=== PATIENT | male | born 1980 | race Caucasian/White ===

== ENCOUNTER 2023-11-17 13:10 | Outpatient (OUT) | payer OTHER, SELFPAY ==
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
== END 2023-11-17 13:11 | disposition home or self-care (01) ==
LOC: PM 13:11
PROVIDERS: Visit Provider Anesthesiology
DX: M47.812 Spondylosis without myelopathy or radiculopathy, cervical region (principal)
CPT/HCPCS: G0463

== ENCOUNTER 2024-01-20 10:34 | Outpatient (OUT) | payer OTHER, SELFPAY ==
--- NOTE | 2024-01-20 10:37 | MR_ITS ---
[place] [id number] Patient Name: SINDY JAVIER MRN: [id number] date: 1980 Sex: M Assigned Patient Location: MRI Current Patient Location: MRI Accession/Order Number: [id number] Exam Date: 01/20/2024 10:47 Report Date: 01/20/2024 14:16 At the request of: SANDRA ROSA Procedure: MR cervical spine wo con EXAMINATION: MR cervical spine wo con HISTORY: Cervical Spondylosis COMPARISON: No relevant comparison available. TECHNIQUE: A variety of imaging planes and parameters were utilized for visualization of suspected pathology. FINDINGS: CRANIOCERVICAL AREA: Normal foramen magnum with no Chiari malformation. PARASPINAL AREA: Normal with no visible mass. BONES: Normal alignment with no acute fracture or spondylolisthesis.. No bone edema CORD: Normal caliber, contour, and signal intensity. CERVICAL DISC LEVELS: C2-C3: No significant disc/facet abnormality, spinal stenosis, or foraminal stenosis. C3-C4: Mild disc space narrowing and disc desiccation. Mild posterior disc/osteophyte complex. No central or foraminal stenosis C4-C5: Mild disc space narrowing and disc desiccation. Mild posterior disc/osteophyte complex. No central or foraminal stenosis C5-C6: Mild disc space narrowing and disc desiccation. Mild posterior disc/osteophyte complex. No central or foraminal stenosis C6-C7: Mild disc space narrowing and disc desiccation. Mild posterior disc/osteophyte complex. No central or foraminal stenosis C7-T1:. No significant disc/facet abnormality, spinal stenosis, or foraminal stenosis. MR/MR cervical spine wo con IMPRESSION: Mild degenerative discogenic changes and spondylosis with no central or foraminal stenosis Electronically authenticated by: BETTY ODONNELL Date: 01/20/2024 14:16
== END 2024-01-20 10:35 | disposition home or self-care (01) ==
LOC: MRI 10:34
PROVIDERS: Visit Provider Anesthesiology
DX: M47.812 Spondylosis without myelopathy or radiculopathy, cervical region (principal)
CPT/HCPCS: 72141

== ENCOUNTER 2024-01-28 08:13 | Outpatient (OUT) | payer OTHER, SELFPAY ==
--- OUTSIDE RECORDS SUMMARY | 2024-01-28 08:22 | XMS_ITS | CCD ---
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 7600, 6399 #### [facility] [place] [address] Furniture Removalist: Mahesh Collado MD Globulin (S) [Mass/Vol] 2.5 g/dL Normal 1.9-3.7 [facility] Comment on above: Performed By: #### 1 0231, 622, 7600, 6399 #### [facility] [address], [address] [place] [address] Furniture Removalist: Mahesh Collado MD Glucose [Mass/Vol] 93 mg/dL Normal 65-139 [facility] Comment on above: Result Comment: Non-fasting reference interval Performed By: #### 1 0231, 622, 7600, 6399 #### [facility] [address], [address] [place] [address] Furniture Removalist: Mahesh Collado MD Potassium [Moles/Vol] 4.2 mmol/L Normal 3.5-5.3 [facility] Comment on above: Performed By: #### 1 0231, 62, 7600, 6399 #### [facility] [place] [address] Furniture Removalist: Mahesh Collado MD Protein [Mass/Vol] 6.5 g/dL Normal 6.1-8.1 [facility] Comment on above: Performed By: #### 1 0231, 622, 7600, 6399 #### [facility] [place] [address] Furniture Removalist: Mahesh Collado MD Sodium [Moles/Vol] 138 mmol/L Normal 135-146 [facility] Comment on above: Performed By: #### 1 0231, 622, 7600, 6399 #### [facility] [place] [address] Furniture Removalist: Mahesh Collado MD Urea nitrogen [Mass/Vol] 13 mg/dL Normal 7-25 [facility] Comment on above: Performed By: #### 1 0231, 622, 7600, 6399 #### [facility] [address], [address] [place] [address] Furniture Removalist: Mahesh Collado MD LIPID PANEL, [facility] 11-06 Cholesterol [Mass/Vol] 164 mg/dL Normal <200 [facility] Comment on above: Order Comment: FASTI NG:NO FASTING: NO Performed By: #### 1 0231, 622, 7600, 6399 #### [facility] [address], [address] [place] [address] Furniture Removalist: Mahesh Collado MD Cholesterol in HDL [Mass/Vol] 39 mg/dL Low > OR = 40 [facility] Comment on above: Order Comment: FASTI NG:NO FASTING: NO Performed By: #### 1 0231, 622, 7600, 6399 #### [facility] [address], [address] [place] [address] Furniture Removalist: Mahesh Collado MD Cholesterol in LDL [Mass/Vol] 98 mg/dL Normal [facility] Comment on above: Order Comment: FASTI NG:NO FASTING: NO Result Comment: Refe rence range: <100 Desirable range <100 mg/dL for primary prevention; <70 mg/dL for patients with CHD or diabetic patients with > or = 2 CHD risk factors. LDL-C is now calculated using the Jared-Chavez calculation, which is a validated novel method providing better accuracy than the Friedewald equation in the estimation of LDL-C. Jared FARRIS et al. JOSE ALBERTO. 2013;310(19): 4326-1109 (http://education.[employer]/faq/FGF288) Performed By: #### 1 0231, 622, 7600, 6399 #### [facility] [address], [address] [place] [address] Furniture Removalist: Mahesh Collado MD Cholesterol.total/Ch olesterol in HDL [Mass ratio] 4.2 {ratio} Normal <5.0 [facility] Comment on above: Order Comment: FASTI NG:NO FASTING: NO Performed By: #### 1 0231, 622, 7600, 6399 #### [facility] [place] [address] Furniture Removalist: Mahesh Collado MD NON HDL CHOLESTEROL 125 mg/dL (calc) Normal <130 [facility] Comment on above: Order Comment: FASTI NG:NO FASTING: NO Result Comment: For patients with diabetes plus 1 major ASCVD risk factor, treating to a non-HDL-C goal of <100 mg/dL (LDL-C of <70 mg/dL) is considered a therapeutic option. Performed By: #### 1 0231, 622, 7600, 6399 #### [facility] [place] [address] Furniture Removalist: Mahesh Collado MD Triglyceride [Mass/Vol] 177 mg/dL High <150 [facility] Comment on above: Order Comment: FASTI NG:NO FASTING: NO Performed By: #### 1 0231, 622, 7600, 6399 #### [facility] [place] [address] Furniture Removalist: Mahesh Collado MD MAGNESIUMon 11-19-2022 Magnesium [Mass/Vol] 2.2 mg/dL Normal 1.5-2.5 [facility] Comment on above: Performed By: #### 1 0231, 622, 7600, 6399 #### [facility] [place] [address] Furniture Removalist: Mahesh Collado MD Ambulatory Clinical Summaryo n 08-22-2021 Ambulatory Clinical Summary {[id number]}CD:[id number] Normal [facility] Formson 08-22-2021 Forms [id number]#1.00CD:127 Normal [facility] Historical Records Officeon 08-22-2021 Historical Records Office [id number] #1.00CD:127 Normal [facility] Patient Educationon 08-22-20 Patient Education Urology Kidney Stones Kidney stones are rock-like masses that form inside of the kidneys. Kidneys are organs that make pee (urine). A kidney stone may move into other parts of the urinary tract, including: ? The tubes that connect the kidneys to the bladder (ureters). ? The bladder. ? The tube that carries urine out of the body (urethra). Kidney stones can cause very bad pain and can block the flow of pee. The stone usually leaves your body (passes) through your pee. You may need to have a doctor take out the stone. What are the causes? Kidney stones may be caused by: ? A condition in which certain glands make too much parathyroid hormone (primary hyperparathyroidism) . ? A buildup of a type of crystals in the bladder made of a chemical called uric acid. The body makes uric acid when you eat certain foods. ? Narrowing (stricture) of one or both of the ureters. ? A kidney blockage that you were born with. ? Past surgery on the kidney or the ureters, such as gastric bypass surgery. What increases the risk? You are more likely to develop this condition if: ? You have had a kidney stone in the past. ? You have a family history of kidney stones. ? You do not drink enough water. ? You eat a diet that is high in protein, salt (sodium), or sugar. ? You are overweight or very overweight (obese). What are the signs or symptoms? Symptoms of a kidney stone may include: ? Pain in the side of the belly, right below the ribs (flank pain). Pain usually spreads (radiates) to the groin. ? Needing to pee often or right away (urgently). ? Pain when going pee (urinating). ? Blood in your pee (hematuria). ? Feeling like you may vomit (nauseous). ? Vomiting. ? Fever and chills. How is this treated? Treatment depends on the size, location, and makeup of the kidney stones. The stones will often pass out of the body through peeing. You may need to: ? Drink more fluid to help pass the stone. In some cases, you may be given fluids through an IV tube put into one of your veins at the hospital. ? Take medicine for pain. ? Make changes in your diet to help keep kidney stones from coming back. Sometimes, medical procedures are needed to remove a kidney stone. This may involve: ? A procedure to break up kidney stones using a beam of light (laser) or shock waves. ? Surgery to remove the kidney stones. Follow these instructions at home: Medicines ? Take jpxl-uws-giyupxw and prescription medicines only as told by your doctor. ? Ask your doctor if the medicine prescribed to you requires you to avoid driving or using heavy machinery. Eating and drinking ? Drink enough fluid to keep your pee pale yellow. You may be told to drink at least 8?10 glasses of water each day. This will help you pass the stone. ? If told by your doctor, change your diet. This may include: ? Limiting how much salt you eat. ? Eating more fruits and vegetables. ? Limiting how much meat, poultry, fish, and eggs you eat. ? Follow instructions from your doctor about eating or drinking restrictions. General instructions ? Collect pee samples as told by your doctor. You may need to collect a pee sample: ? 24 hours after a stone comes out. ? 8?12 weeks after a stone comes out, and every 6?12 months after that. ? Strain your pee every time you pee (urinate), for as long as told. Use the strainer that your doctor recommends. ? Do not throw out the stone. Keep it so that it can be tested by your doctor. ? Keep all follow-up visits as told by your doctor. This is important. You may need follow-up tests. How is this prevented? To prevent another kidney stone: ? Drink enough fluid to keep your pee pale yellow. This is the best way to prevent kidney stones. ? Eat healthy foods. ? Avoid certain foods as told by your doctor. You may be told to eat less protein. ? Stay at a healthy weight. Where to find more information ? National Kidney Foundation (NKF): www.kidney.org ? [facility] (UCF): www.urologyhealth.or g Contact a doctor if: ? You have pain that gets worse or does not get better with medicine. Get help right away if: ? You have a fever or chills. ? You get very bad pain. ? You get new pain in your belly (abdomen). ? You pass out (faint). ? You cannot pee. Summary ? Kidney stones are rock-like masses that form inside of the kidneys. ? Kidney stones can cause very bad pain and can block the flow of pee. ? The stones will often pass out of the body through peeing. ? Drink enough fluid to keep your pee pale yellow. This information is not intended to replace advice given to you by your health care provider. Make sure you discuss any questions you have with your health care provider. Document Released: 03/10/2009 Document Revised: 02/08/2020 Document Reviewed: 02/08/2020 [employer] Patient Education ? 2019 [employer]. 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 male here for Kidney Stone. Recent KUB done . Previously seen for Kidney Stone 5 years prior. Current KUB done 07/30/2021. BL Flank pain that is tolerable. No known passing of stone. He had been hydrated. Today's PH is 6.0. Father has acidic kidney stone. Dysuria: _Denies Incomplete bladder emptying: _at time doesn't feel empty Hematuria: _Unknown Frequency: _Denies typically but has been drinking a lot due to Hand Foot and Mouth Urgency: _Denies Nocturia: _1-2xs Stream: _Steady stream Leaking: _Denies Post void dripping: _Denies Wearing pads/ Depends: _Denies Urge incontinence: _Denies Stress incontinence: _Denies Incontinence without Sensory Awareness: _Denies Abdominal pain: _Left sided pain Flank pain: _BL flank pain that is tolerable. Sexual complaints: _ History of Present Illness Reviewed urinalysis and KUB. There have been no associated fever, chills, flank pain or blood in the urine. Pt. denies any pain/burning with urination at this time. I have reviewed and verified the staff HPI to be accurate for this encounter. I have reviewed the previous health record information and history for this patient from Dr. Smith. Review of Systems PHQ Score Initial Depression Screen Score: 0 ROS - Provider Constitutional: denies weight loss, denies hot flashes. Eyes: denies eye problems. Gastrointestinal: denies nausea, denies vomiting. Cardiovascular: denies chest pain or angina. Integumentary: no dryness Musculoskeletal: denies musculoskeletal symptoms. ENMT: denies otolaryngeal symptoms. Respiratory: no shortness of breath. Heme/Lymph: denies easy bleeding tendency, denies easy bruising tendency. Psychiatric: no confusion, no anxiety. Genitourinary: See HPI Physical Exam Vitals & Measurements HR: 100(Peripheral) BP: 143/99 HT: 187.96 cm HT: 188.0 cm WT: 89.2 kg WT: 89.2 kg BMI: 25.25 General Appearance: alert, no distress, well nourished, well developed male. Head: normocephalic . Eyes: normal orbit and globe. ENMT: normal examination of external ears. Chest: Lungs CTA, respirations non labored. Cardiovascular: regular rate and rhythm. Abdomen: soft, non distended, no tenderness, no mass or organomegaly, no hernia. Genitourinary: normal scrotum, normal testes, normal urethra, normal epididymis, normal vas deferens/spermatic cord. Flank Pain: none. Bladder: nonpalpable. Penis: normal shaft, normal glans. Lymph Nodes: unremarkable palpation of the cervical area. Skin: warm, dry, no bruising. Psychiatric: cooperative, affect appropriate for age, normal judgement, euthymic mood. Assessment/Plan 1. Kidney stone (N20.0: Calculus of kidney) Pt. has had stones treated in the past. KUB done 07/30/2021 shows no radiodense renal stones are noted on the current exam. Pt. has not been passed any stone fragments that he is aware of. Urinalysis today shows no evidence of blood. Pt. has been staying hydrated. Discussed CT scan, pt. wants to hold off at this time. He is to call within the next few weeks with an update to make a decision. 2. Flank pain (R10.9: Unspecified abdominal pain) Bilat. and tolerable. Pt. will call if this worsens, if so, possible CT scan. 3. Nocturia (R35.1: Nocturia) Moderate, 1-2x/night. 4. Former smoker (Z87.891: Personal history of nicotine dependence) Quit recently, chews tobacco currently. Overall the patient has bilateral lower back discomfort. He wonders whether this is kidney stone pain. He contracted qfyr-ybxo-duo-mouth disease. He has no blood in his urine, nor does he have any colicky discomfort. I offered him a CT scan but the pain is actually dissipating at this point. He will give us an update within about 2 weeks or so. He knows the KUB is negative but this can miss small stones. Certainly no large calculi are identified. He will call or go to the ER if his pain becomes severe. He agrees with this plan Follow-up With When Contact Information Marcio SMITH MD, URL [address] [place] [phone]- Additional Instructions: call w/ an update Patient Education Kidney Stones, Qshm-nl-Zhmo I, Anna Wright, personally scribed for Dr. Smith on 08/22/2021 10:45:52. . Documentation recorded by the scribe, Angelica Gibson, accurately reflects the services(s) I performed and decisions made by me. Authenticated by Dr. Smith on 08/22/2021 10:58:05. Problem List/Past Medical History Ongoing Former smoker Nocturia Historical No qualifying data Procedure/Surgical History Cystoscopy (09/03/2018), Appendectomy;, Embolization of varicocele, Hernia Repair as a child. Medications garlic, 1 tablet, Oral, Daily Multivitamins and Minerals, 1 tablet, Oral, Daily ondansetron 4 mg oral tablet, 4 mg= 1 tab(s), Oral, q8hr, PRN Vitamin B12, 1 tablet (more content not included)... Normal [facility] Comment on above: Result Comment: Elec tronically Signed By: Marcio SMITH MD\.br\Date and Time Signed: 08/22/21 10:58 EST\.br\Electronically Co-Signed By: Anna Wright\.br\Date and Time Co-Signed: 08/22/21 10:46 EST RAD - MISCon 07-31-2021 RAD - MISC [id number] 1.00CD:127 Normal [facility] Encounters Encounter Date Encounter Type Care Provider Facility Start: 01-06-2024 End: 01-06-2024 ambulatory ILEANA L DAUCH-KAKE Not Available Start: 01-01-2024 End: 01-01-2024 ambulatory MIKEY PUDLOSKI Not Available Start: 12-30-2023 End: 12-30-2023 ambulatory MIKEY PUDLOSKI Not Available Start: 12-25-2023 End: 12-25-2023 ambulatory MIKEY PUDLOSKI Not Available Start: 12-23-2023 End: 12-23-2023 ambulatory MIKEY PUDLOSKI Not Available Start: 12-18-2023 End: 12-18-2023 ambulatory MIKEY PUDLOSKI Not Available Start: 12-16-2023 End: 12-16-2023 ambulatory MIKEY PUDLOSKI Not Available Start: 12-11-2023 End: 12-11-2023 ambulatory MIKEY PUDLOSKI Not Available Start: 12-09-2023 End: 12-09-2023 ambulatory MIKEY PUDLOSKI Not Available Start: 12-04-2023 End: 12-04-2023 ambulatory ILEANA L DAUCH-KAKE Not Available Start: 11-18-2023 External Result Encounter Mikey L New Point DO Work Phone: [facility] Unsolicited Start: 11-18-2023 External Result Encounter Mikey L New Point DO Work Phone: [facility] External [facility] Unsolicited Start: 11-17-2023 End: 11-18-2023 ambulatory Pj Curran MD Facility:[facility] Start: 11-12-2023 End: 11-12-2023 ambulatory MIKEY L CUTLER Not Available Start: 11-12-2023 Bamboo flowsheet Mikey L Cut ler DO Work Phone: [facility] Start: 11-12-2023 Bamboo flowsheet Mikey L Cut ler DO Work Phone: [facility] Start: 08-25-2023 End: 08-26-2023 ambulatory MIKEY Julius RAMOS Not Available Start: 06-25-2023 End: 06-25-2023 ambulatory Benito Guzman Facility:[facility] Start: 06-25-2023 End: 06-25-2023 ambulatory DO Benito Guzman Work Phone: [facility] Work Phone: Start: 06-25-2023 End: 06-25-2023 Patient encounter procedure DO Benito Guzman Work Phone: [facility] [address] Work Phone: Procedures Date Procedure Procedure Detail Performing Clinician Start: 11-18-2023 Complete blood count with white cell differential, automated Mikey Ramos DO Work Phone: Start: 11-18-2023 Comprehensive metabo lic panel Mikeymorgan Ramos DO Work Phone: Start: 11-18-2023 Lipid panel Mikey Julius Rachel DO Work Phone: Start: 06-25-2023 Radiography of thora cic spine DO Benito Guzman Work Phone: Start: 06-25-2023 X-ray of cervical spine DO Benito Guzman Work Phone: Plan of Treatment Date Care Activity Detail Author Start: 11-12-2023 End: 11-12-2023 Patient encounter procedure 11/12/2023 2:00 PM EST Office Visit [facility] [address] [place] [address] Mikey Ramos, DO [address] [place] [address] Arrived [facility] Comment on above: Arrived Start: 06-06-2023 [facility]enza [facility] Immunization Date Immunization Notes Care Provider Fa cility 04-03-2021 tetanus toxoid, redu emily diphtheria toxoid, and acellular pertussis vaccine, adsorbed Mikey Ramos DO Work Phone: [facility] 07-05-2012 influenza virus vacc ine, unspecified formulation Mikey New Point DO Work Phone: [facility] 08-01-2010 anthrax vaccine Mikey Cutl er DO Work Phone: [facility] 07-05-2010 influenza virus vacc ine, whole virus Mikey New Point DO Work Phone: [facility] 07-05-2010 novel influenza-H1N1 -09, all formulations Mikey New Point DO Work Phone: [facility] 01-29-2010 anthrax vaccine Mikey Cutl er DO Work Phone: [facility] 01-29-2010 vaccinia (smallpox) vaccine, diluted Mikey New Point DO Work Phone: [facility] 12-29-2009 anthrax vaccine Mikey Cutl er DO Work Phone: [facility] 11-29-2009 hepatitis B vaccine, adult dosage Mikey New Point DO Work Phone: [facility] 10-23-2009 novel influenza-H1N1 -09, all formulations Mikey New Point DO Work Phone: [phone] [place] [address] 10-20-2009 hepatitis A vaccine, unspecified formulation Mikey New Point DO Work Phone: [phone] [place] [address] 10-20-2009 hepatitis B vaccine, adult dosage Mikey New Point DO Work Phone: [phone] [place] [address] 10-20-2009 influenza virus vacc ine, whole virus Mikey New Point DO Work Phone: [facility] 04-05-2009 hepatitis A vaccine, unspecified formulation Mikey New Point DO Work Phone: [facility] 04-05-2009 hepatitis B vaccine, adult dosage Mikey New Point DO Work Phone: [facility] 04-05-2009 measles, mumps and rubella virus vaccine Mikey New Point DO Work Phone: [phone] [place] [address] 04-05-2009 poliovirus vaccine, inactivated Mikey New Point DO Work Phone: [facility] 04-05-2009 tetanus toxoid, redu emily diphtheria toxoid, and acellular pertussis vaccine, adsorbed Mikey New Point DO Work Phone: [facility] 04-05-2009 typhoid vaccine, unspecified formulation Mikey New Point DO Work Phone: [facility] 08-11-2006 influenza virus vacc ine, unspecified formulation Mikey New Point DO Work Phone: [facility] Payers Date Payer Category Payer Self-pay [id number] 2022 Unknown [id number] 2022 Unknown [id number] 1980 Unknown [id number] [id number]6 1980 Unknown [id number] 2.16.840.1.910015.3.579.2.1258 1980 Unknown [id number] 2.16.840.1.411059.3.579.2.1258 1980 Unknown [id number] 2.16.840.1.819904.3.579.2.1258 1980 Unknown [id number] 2.16.840.1.345539.3.579.2.1258 1980 Unknown [id number] 2.16.840.1.537540.3.579.2.1258 1980 Unknown [id number] 2.16.840.1.373119.3.579.2.1258 1980 Unknown [id number] 2.16.840.1.407439.3.579.2.1258 1980 Unknown [id number] 2.16.840.1.982240.3.579.2.1258 1980 Unknown [id number] 2.16.840.1.141981.3.579.2.1258 1980 Unknown [id number] 2.16.840.1.389410.3.579.2.1259 1980 Unknown [id number] 2..840.1.113764.3.579.2.1259 1980 Unknown [id number] 2.16.840.1.766946.3.579.2.1259 Unknown Agustina BC/BS [id number] Unknown [id number] 2.16.840.1.173039.3.579.2.531 Worker's Compensation [employer] [id number] Social History Date Type Detail Facility Start: 02-09-2020 Tobacco smoking stat [facility] Smoker (finding) [facility] Start: 1980 Sex Assigned At Male F [facility] Start: 05-06-2023 Tobacco smoking stat [facility] Smokes tobacco daily [facility] History of tobacco use Cigarette Smoker [facility] Start: 05-06-2023 Tobacco use and exposure Smoke less tobacco non-user [facility] Start: 06-25-2023 End: 11-12-2023 History of Social function [facility] Start: 06-25-2023 End: 11-12-2023 Humiliation, Afraid, Rape, and Kick questionnaire [HARK] [facility] Within the last year , have you been afraid of your partner or ex-partner? No [facility] In a typical week, h ow many times do you talk on the telephone with family, friends, or neighbors? Patient refused [facility] Are you now , , , , never or living with a partner? [facility] How often to you hav e a drink containing alcohol? Monthly or less [facility] How often do you hav e 6 or more drinks on 1 occasion? Never [facility] Do you feel stress - tense, restless, nervous, or anxious, or unable to sleep at night because your mind is troubled all the time - these days [OSQ] Very much [facility] (I/We) worried wheth er (my/our) food would run out before (I/we) got money to buy more. DK or Refused [facility] Start: 1980 Sex Assigned At Not on file [facility] Evaluation note Note Date & Type Note Facility Evaluation note No assessment information availa angie [facility] Work Phone: Summary Purpose Family History No Family History Records Found Relationship Condition Age at Onset Recorded Date/T shamir Not Specified Coronary artery disease Unknown Hypertension Unknown Advance Directives No Advanced Directives Records Found Advance Directive Response Recorded Date/ Time Advance Directives No July 08, 2017 1:35pm Additional Source Comments (unrecognized sect ion and content) No Status Records FoundNo Status Records FoundNo Status Records FoundNo Status Records FoundNo Status Records Found INFORMATION SOURCE (unrecogn ized section and content) DATE CREATED AUTHOR 11/13/2021 [facility] DATE CREATED AUTHOR AUTHOR'S ORGANIZ ATION 11/20/2022 [facility] DATE CREATED AUTHOR AUTHOR'S ORGANIZ ATION 07/08/2023 [facility] DATE CREATED AUTHOR AUTHOR'S ORGANIZ ATION 11/23/2023 [facility] DATE CREATED AUTHOR AUTHOR'S ORGANIZ ATION 01/07/2024 [facility] EPIC Care Teams (unrecognized sec tion and content) Team Status: Active Member Role Status Dates Benito Guzman DO Primary Care Provider Active Team Status: Inactive Member Role Status Dates Benito Guzman DO Primary Care Provider Active Mikey Ramos DO Attending Provider Active Direct [employer]ill Cast[employer] Operator Relationship Specialty Start Date End Date Benito Guzman DO [address] [place] [address] PCP - General Family Medicine 11/12/23 Direct [employer] Casting Operator Relationship Specialty Start Date End Date Benito Guzman DO [address] [place] [address] PCP - General Family Medicine 11/12/23 Goals (unrecognized section and content) Goals may be documented in a n alternate section FOR RECORDS PERTAINING TO PATIENTS WHO ARE OR HAVE BEEN ENROLLED IN A CHEMICAL DEPENDENCY/SUBSTANCEABUSE PROGRAM, SOME INFORMATION MAY BE OMITTED. This clinical summary was aggregated from multiple sources. Caution should be exercised in using it in the provision of clinical care. This summary normalizes information from multiple sources, and as a consequence, information in this document may materially change the coding, format and clinical context of patient data. In addition, data may be omitted in some cases. CLINICAL DECISIONS SHOULD BE BASED ON THE PRIMARY CLINICAL RECORDS. [facility] [facility]. provides no warranty or guarantee of the accuracy or completeness of information in this document.
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
== END 2024-01-28 08:14 | disposition home or self-care (01) ==
LOC: PM 08:14
PROVIDERS: Visit Provider Nurse Practitioner
DX: M47.812 Spondylosis without myelopathy or radiculopathy, cervical region (principal)
CPT/HCPCS: G0463